=== PATIENT | female | born 1935 | race Caucasian/White ===

== ENCOUNTER 2022-03-21 18:53 | Inpatient (IN) | payer MEDICARE, MEDICAID ==
[2022-03-21] MEDS ORDERED: Calcium Carbonate 500 MG ChewTAB PO PRN (19:23)
[2022-03-21] MEDS ORDERED: Ondansetron PF 4 MG/2 ML Vial IVP PRN (19:23)
[2022-03-21] MEDS ORDERED: Guaifenesin DM 100-10/5 ML UDCUP PO PRN (19:23)
[2022-03-21] MEDS ORDERED: Senokot S 8.6-50 MG TAB PO PRN (19:23)
[2022-03-21] MEDS ORDERED: Nitroglycerin 0.4 MG TAB (25 Tab Bottle) SL PRN (19:24)
[2022-03-21] MEDS ORDERED: Ipratropium/Albuterol 3 ML NEB NEB PRN (19:29)
[2022-03-21] MEDS ORDERED: predniSONE 20 MG TAB PO SCH (20:00)
[2022-03-21 20:23] LABS: CKMB 2.5 ng/mL (0-6.6)
[2022-03-21] MEDS ORDERED: traZODone HCl 50 MG TAB PO SCH (21:00)
[2022-03-21 21:01] VITALS: BMI 27.3
[2022-03-21] MEDS: Apixaban 2.5 MG TAB PO SCH (21:37)
[2022-03-21] MEDS: Amlodipine 5 MG TAB PO SCH (21:46)
[2022-03-21] MEDS: Metoprolol Tartrate 50 MG TAB PO SCH (21:46)
[2022-03-21] MEDS: Benzonatate 100 MG CAP PO SCH (21:46)
[2022-03-21] MEDS: Doxycycline 100 MG CAP PO SCH (21:46)
[2022-03-21] MEDS: Atorvastatin Calcium 40 MG TAB PO SCH (21:47)
[2022-03-21] MEDS: Cefdinir 300 MG CAP PO SCH (21:47)
[2022-03-21] MEDS: Acetaminophen 325 MG TAB PO PRN (23:05)
[2022-03-22] MEDS ORDERED: Guaifenesin DM 100-10/5 ML UDCUP ONE (00:04)
[2022-03-22] MEDS: Lorazepam 0.5 MG TAB PO PRN ×2 (00:06→20:02)
[2022-03-22 05:26] LABS: Anion Gap 12 mmol/L (10-20); BUN (Urea Nitrogen) 15 mg/dL (9.8-20.1); Calc. Creatinine Clearance 43 mL/min (70-130); Calcium 10.6 mg/dL (7.8-10.44); Carbon Dioxide 27 mmol/L (23-31); Chloride 101 mmol/L (98-107); Estimated GFR 49; Glucose 258 mg/dL (83-110); Potassium 4.4 mmol/L (3.5-5.1); Sodium 136 mmol/L (136-145)
[2022-03-22 07:45] LABS: SARS-CoV-2 NAA Rapid Test Not Detected (NotDetected)
[2022-03-22] MEDS: Apixaban 2.5 MG TAB PO SCH ×2 (09:27→20:01)
[2022-03-22] MEDS: Venlafaxine HCl XR 75 MG CAP PO SCH (09:28)
[2022-03-22] MEDS: Aspirin 81 mg Enteric Coated Tablet PO SCH (09:29)
[2022-03-22] MEDS: Doxycycline 100 MG CAP PO SCH ×2 (09:29→20:00)
[2022-03-22] MEDS: Cefdinir 300 MG CAP PO SCH ×2 (09:29→20:01)
[2022-03-22] MEDS: Benzonatate 100 MG CAP PO SCH ×3 (09:29→20:00)
[2022-03-22] MEDS: Amlodipine 5 MG TAB PO SCH ×2 (09:30→20:01)
[2022-03-22] MEDS: Losartan 25 MG TAB PO SCH (09:31)
[2022-03-22] MEDS: Metoprolol Tartrate 50 MG TAB PO SCH ×2 (09:32→20:01)
[2022-03-22] MEDS: Amiodarone 200 MG TAB PO SCH (09:33)
[2022-03-22 12:31] LABS: Hemoglobin A1c 8.3 % (4.0-6.0)
[2022-03-22] MEDS: Acetaminophen 325 MG TAB PO PRN ×2 (15:17→22:25)
[2022-03-22] MEDS: Atorvastatin Calcium 40 MG TAB PO SCH (20:02)
[2022-03-23] MEDS: Venlafaxine HCl XR 75 MG CAP PO SCH (09:24)
[2022-03-23] MEDS: Losartan 25 MG TAB PO SCH (09:24)
[2022-03-23] MEDS: Amlodipine 5 MG TAB PO SCH (09:24)
[2022-03-23] MEDS: Cefdinir 300 MG CAP PO SCH (09:24)
[2022-03-23] MEDS: Doxycycline 100 MG CAP PO SCH (09:24)
[2022-03-23] MEDS: Aspirin 81 mg Enteric Coated Tablet PO SCH (09:24)
[2022-03-23] MEDS: Metoprolol Tartrate 50 MG TAB PO SCH (09:24)
[2022-03-23] MEDS: Amiodarone 200 MG TAB PO SCH (09:25)
[2022-03-23] MEDS: Apixaban 2.5 MG TAB PO SCH (09:25)
[2022-03-23 12:37] VITALS: BP 159/71; TEMP 97.8
== END 2022-03-23 14:41 | DRG 193 ==
LOC: CSHTELE 18:53 → OBSVTOIN 03-23 13:52
PROVIDERS: ADMIT Hospitalist; ATTEND Internal Medicine
DX: J18.9 Pneumonia, unspecified organism (principal); I21.A1 Myocardial infarction type 2; I48.20 Chronic atrial fibrillation, unspecified; I50.32 Chronic diastolic (congestive) heart failure; J90 Pleural effusion, not elsewhere classified; J98.11 Atelectasis; N18.9 Chronic kidney disease, unspecified; F03.90 Unspecified dementia, unspecified severity, without behavioral disturbance, psychotic disturbance, mood disturbance, and anxiety; I13.0 Hypertensive heart and chronic kidney disease with heart failure and stage 1 through stage 4 chronic kidney disease, or unspecified chronic kidney disease; Z20.822 Contact with and (suspected) exposure to COVID-19; E78.5 Hyperlipidemia, unspecified; R73.9 Hyperglycemia, unspecified; F41.9 Anxiety disorder, unspecified; F32.A Depression, unspecified; Z79.82 Long term (current) use of aspirin; Z79.899 Other long term (current) drug therapy; Z79.52 Long term (current) use of systemic steroids; Z88.0 Allergy status to penicillin; Z88.7 Allergy status to serum and vaccine; Z95.0 Presence of cardiac pacemaker
CPT/HCPCS: 36415; 36416; 80048; 82553; 83036; 84145; 84484; 93970; 94760; G0378; J7512; U0002